=== PATIENT | female | born 1965 | race Caucasian/White ===

== ENCOUNTER 2022-10-04 20:28 | Inpatient (IN) | payer OTHER ==
[~2022-10-04] VITALS: Ht 167.6 cm; Wt 122.5 kg
[2022-10-04 21:15] LABS: BASOPHILS # (AUTO) 0.1 (0.0-0.1); BASOPHILS % 0.5 % (0.0-1.0); EOSINOPHILS # (AUTO) 0.4 (0.0-0.4); EOSINOPHILS % 3.5 % (0.0-6.0); HEMATOCRIT 44.6 % (34.2-44.1); HEMOGLOBIN 14.7 g/dL (12.0-16.0); LYMPHOCYTES # (AUTO) 2.9 (1.0-3.2); LYMPHOCYTES % 26.2 % (18.0-39.1); MEAN CORPUSCULAR HEMOGLOBIN 29.2 pg (28-32); MEAN CORPUSCULAR VOLUME 88.7 fL (81-99); MONOCYTES # (AUTO) 0.7 (0.2-0.8); MONOCYTES % 6.4 % (4.4-11.3); NEUTROPHILS # (AUTO) 6.9 (2.1-6.9); PLATELET COUNT 323 x10e3/uL (140-360); RED BLOOD COUNT 5.03 x10e6/uL (3.6-5.1); RED CELL DISTRIBUTION WIDTH 13.7 % (11.7-14.4)
[2022-10-04 21:28] LABS: AMPHETAMINES SCREEN,URINE NEGATIVE (NEGATIVE); BENZODIAZEPINES SCREEN,URINE NEGATIVE (NEGATIVE); PHENCYCLIDINE SCREEN,URINE NEGATIVE (NEGATIVE)
[2022-10-04] MEDS ORDERED: DILTIAZEM HCL 5 MG/ML 5 ML VIAL IV STA (21:33)
[2022-10-04] MEDS ORDERED: METOPROLOL TARTRATE INJ 1 MG/ML VIAL IV STA (21:33)
[2022-10-04] MEDS ORDERED: DIGOXIN INJ 0.25 MG/ML 2 ML AMP IV STA (21:33)
[2022-10-04 21:37] LABS: ALANINE AMINOTRANSFERASE 20 IU/L (0-55); ALBUMIN 3.2 g/dL (3.5-5.0); ALBUMIN/GLOBULIN RATIO 0.8 (0.8-2.0); ALKALINE PHOSPHATASE 79 IU/L (40-150); ANION GAP 12.5 mmol/L (8-16); BLOOD UREA NITROGEN 11 mg/dL (7-26); BUN/CREATININE RATIO 14 (6-25); CALCIUM 9.2 mg/dL (8.4-10.2); CARBON DIOXIDE 26 mmol/L (22-29); CHLORIDE 107 mmol/L (98-107); CREATINE KINASE 39 IU/L (29-168); CREATININE, SERUM 0.81 mg/dL (0.57-1.11); GLUCOSE 132 mg/dL (74-118); POTASSIUM 3.5 mmol/L (3.5-5.1); SODIUM 142 mmol/L (136-145)
[2022-10-04] MEDS: SODIUM CHLORIDE 0.9% 1000ML 1,000 ML IV SCH (21:59)
[2022-10-04] MEDS ORDERED: Morphine 4mg INJECTION 4 MG/ML INJ IV PRN (22:00)
[2022-10-04] MEDS ORDERED: ONDANSETRON HCL INJ 2MG/ML 2ML 2 MG/ML VIAL IV PRN (22:00)
[2022-10-04 23:18] VITALS: PULSE 77; RESP 18; O2SAT 98
[2022-10-05] MEDS ORDERED: POLYETHYLENE GLYCOL 3350 17 GM PACK PO PRN (00:15)
[2022-10-05] MEDS ORDERED: METOPROLOL TARTRATE INJ 1 MG/ML VIAL IV PRN (00:15)
[2022-10-05] MEDS ORDERED: TEMAZEPAM 7.5 MG CAP PO PRN (00:15)
[2022-10-05 05:14] LABS: BASOPHILS # (AUTO) 0.1 (0.0-0.1); BASOPHILS % 0.6 % (0.0-1.0); EOSINOPHILS # (AUTO) 0.4 (0.0-0.4); EOSINOPHILS % 3.9 % (0.0-6.0); HEMOGLOBIN 13.2 g/dL (12.0-16.0); LYMPHOCYTES # (AUTO) 2.9 (1.0-3.2); LYMPHOCYTES % 26.6 % (18.0-39.1); MEAN CORPUSCULAR HEMOGLOBIN 29.3 pg (28-32); MEAN CORPUSCULAR HGB CONC 32.2 g/dL (31-35); MEAN CORPUSCULAR VOLUME 90.9 fL (81-99); MONOCYTES % 8.8 % (4.4-11.3); NEUTROPHILS # (AUTO) 6.6 (2.1-6.9); NEUTROPHILS % 59.7 % (38.7-80.0); PLATELET COUNT 277 x10e3/uL (140-360); RED BLOOD COUNT 4.51 x10e6/uL (3.6-5.1); RED CELL DISTRIBUTION WIDTH 13.7 % (11.7-14.4)
[2022-10-05 05:29] LABS: ALBUMIN 2.9 g/dL (3.5-5.0); ALBUMIN/GLOBULIN RATIO 0.8 (0.8-2.0); ANION GAP 11.8 mmol/L (8-16); CALCIUM 8.6 mg/dL (8.4-10.2); CREATINE KINASE 28 IU/L (29-168); CREATININE, SERUM 0.71 mg/dL (0.57-1.11); POTASSIUM 3.8 mmol/L (3.5-5.1)
[2022-10-05] MEDS: SODIUM CHLORIDE 0.9% 1000ML 1,000 ML IV SCH (06:00)
[2022-10-05 06:52] VITALS: PULSE 75; RESP 18; O2SAT 96
[2022-10-05 13:22] LABS: CREATINE KINASE MB 1.4 ng/mL (0-5.0)
[2022-10-05 15:22] VITALS: BP 134/85; PULSE 75; RESP 18; TEMP 97.7; O2SAT 100
[2022-10-05] MEDS: DOCUSATE SODIUM 100 MG CAP PO SCH ×2 (16:03→17:24)
[2022-10-05 16:35] VITALS: BP 134/85; PULSE 83; RESP 19; TEMP 98.7; O2SAT 97
[2022-10-05] MEDS ORDERED: CARVEDILOL3.125 MG PO (17:58)
[2022-10-05] MEDS ORDERED: LOSARTAN POTASS25 MG PO (17:58)
[2022-10-05 20:00] VITALS: BP 130/80; PULSE 85; RESP 20; TEMP 97.6; O2SAT 98
[2022-10-05] MEDS: ACETAMINOPHEN 325 MG TAB PO PRN (21:13)
[2022-10-06] VITALS (10 sets, daily range): BP systolic 129–177; BP diastolic 56–90; PULSE 74–110; RESP 16–21; TEMP 97.3–98; O2SAT 96–100
[2022-10-06] MEDS: ACETAMINOPHEN 325 MG TAB PO PRN ×2 (05:15→12:03)
[2022-10-06 06:10] LABS: BASOPHILS # (AUTO) 0.1 (0.0-0.1); BASOPHILS % 0.5 % (0.0-1.0); EOSINOPHILS # (AUTO) 0.4 (0.0-0.4); HEMATOCRIT 44.3 % (34.2-44.1); LYMPHOCYTES % 27.2 % (18.0-39.1); MEAN CORPUSCULAR HEMOGLOBIN 28.7 pg (28-32); MEAN CORPUSCULAR HGB CONC 31.6 g/dL (31-35); MEAN CORPUSCULAR VOLUME 90.8 fL (81-99); MONOCYTES # (AUTO) 0.9 (0.2-0.8); MONOCYTES % 8.3 % (4.4-11.3); NEUTROPHILS # (AUTO) 6.6 (2.1-6.9); NEUTROPHILS % 59.6 % (38.7-80.0); PLATELET COUNT 331 x10e3/uL (140-360); RED BLOOD COUNT 4.88 x10e6/uL (3.6-5.1); RED CELL DISTRIBUTION WIDTH 13.6 % (11.7-14.4)
[2022-10-06 06:30] LABS: ALBUMIN/GLOBULIN RATIO 0.8 (0.8-2.0); ANION GAP 13.7 mmol/L (8-16); CALCIUM 8.8 mg/dL (8.4-10.2); CHOL/HDL RATIO 3.7 (3.0-3.6); CREATININE, SERUM 0.72 mg/dL (0.57-1.11); MAGNESIUM 2.2 MG/DL (1.3-2.1); PHOSPHORUS 3.7 MG/DL (2.3-4.7); POTASSIUM 3.7 mmol/L (3.5-5.1)
[2022-10-06 07:56] LABS: THYROID STIMULATING HORMONE 3.804 uIU/mL (0.350-4.940)
[2022-10-06] MEDS: DOCUSATE SODIUM 100 MG CAP PO SCH ×3 (09:00→16:48)
[2022-10-06] MEDS ORDERED: METOPROLOL SUCCINATE 25 MG TAB XL PO SCH (09:00)
[2022-10-06] MEDS ORDERED: REGADENOSON 0.4 MG/5 ML SYR IV ONE (09:51)
[2022-10-06] MEDS: METOPROLOL TARTRATE 25 MG TAB PO SCH (17:07)
[2022-10-07] VITALS: BP 116/65; PULSE 77; RESP 22; TEMP 98.1; O2SAT 97
[2022-10-07 04:00] VITALS: BP 130/70; PULSE 65; RESP 18; TEMP 98; O2SAT 99
[2022-10-07] MEDS: METOPROLOL TARTRATE 25 MG TAB PO SCH ×3 (05:30→11:14)
[2022-10-07 07:36] VITALS: BP 129/61; PULSE 65; RESP 18; TEMP 97.4; O2SAT 96
[2022-10-07 07:56] VITALS: BP 129/61; PULSE 65; RESP 18; TEMP 97.4; O2SAT 96
[2022-10-07 11:02] VITALS: BP 113/62; PULSE 62; RESP 21; TEMP 98.6; O2SAT 98
[2022-10-07] MEDS: ACETAMINOPHEN 325 MG TAB PO PRN (11:14)
[2022-10-07] MEDS ORDERED: ONDANSETRON HCL 4 MG ORAL DISINTEGRATING TAB PO PRN (13:30)
[2022-10-07] MEDS ORDERED: TEMAZEPAM 15 MG CAP PO PRN (13:30)
[2022-10-07] MEDS ORDERED: METOPROLOL TART50 MG PO (15:14)
[2022-10-07 15:43] VITALS: BP 110/55; PULSE 58; RESP 18; TEMP 98.6; O2SAT 96
[2022-10-07] MEDS ORDERED: METOPROLOL TARTRATE 50 MG TAB PO SCH (21:00)
== END 2022-10-07 16:19 | disposition home or self-care (01) | DRG 309 ==
LOC: ER 20:35 → ERHOLD 21:53 → MED/SURG2 10-05 13:40 → OBSVTOIN 10-06 09:13
PROVIDERS: ADMIT Internal Medicine; ATTEND Internal Medicine
DX: I47.1 Supraventricular tachycardia (principal); Z68.41 Body mass index [BMI] 40.0-44.9, adult; R55 Syncope and collapse; I48.20 Chronic atrial fibrillation, unspecified; I11.9 Hypertensive heart disease without heart failure; K21.9 Gastro-esophageal reflux disease without esophagitis; E78.5 Hyperlipidemia, unspecified; E66.01 Morbid (severe) obesity due to excess calories
CPT/HCPCS: 0223U; 36415; 71045; 78452; 80053; 80061; 80307; 82550; 82553; 83036; 83690; 83735; 83880; 84100; 84443; 84484; 85025; 85379; 93005; 93017; 93306; 93970; 94799; 99284; A9502; G0378; J1160; J7030

== ENCOUNTER 2024-11-03 15:17 | Emergency (ER) | payer OTHER ==
[~2024-11-03] VITALS: Ht 167.6 cm; Wt 136.1 kg
[~2024-11-03 15:17] MED LIST: CARVEDILOL3.125 MG PO; LOSARTAN POTASS25 MG PO; METOPROLOL TART50 MG PO
[2024-11-03 15:46] LABS: BASOPHILS # (AUTO) 0.1 (0.0-0.1); BASOPHILS % 0.5 % (0.0-1.0); EOSINOPHILS # (AUTO) 0.4 (0.0-0.4); EOSINOPHILS % 3.9 % (0.0-6.0); HEMATOCRIT 40.2 % (34.2-44.1); HEMOGLOBIN 13.3 g/dL (12.0-16.0); LYMPHOCYTES # (AUTO) 2.7 (1.0-3.2); MEAN CORPUSCULAR HEMOGLOBIN 29.7 pg (28-32); MEAN CORPUSCULAR HGB CONC 33.1 g/dL (31-35); MEAN CORPUSCULAR VOLUME 89.7 fL (81-99); MONOCYTES % 9.8 % (4.4-11.3); NEUTROPHILS # (AUTO) 5.8 (2.1-6.9); NEUTROPHILS % 58.5 % (38.7-80.0); PLATELET COUNT 280 x10e3/uL (140-360); RED BLOOD COUNT 4.48 x10e6/uL (3.6-5.1); RED CELL DISTRIBUTION WIDTH 13.4 % (11.7-14.4); WHITE BLOOD COUNT 9.93 x10e3/uL (4.8-10.8)
[2024-11-03 15:57] LABS: INR 0.91; PARTIAL THROMBOPLASTIN TIME 24.7 seconds (23.8-35.5); PROTHROMBIN TIME 13.1 seconds (11.9-14.5)
[2024-11-03 16:05] LABS: ALBUMIN 3.1 g/dL (3.5-5.0); ALBUMIN/GLOBULIN RATIO 0.8 (0.8-2.0); ANION GAP 14.8 mmol/L (8-16); BILIRUBIN,TOTAL 0.6 mg/dL (0.2-1.2); CALCIUM 9.4 mg/dL (8.4-10.2); CREATININE, SERUM 0.78 mg/dL (0.57-1.11); MAGNESIUM 1.9 MG/DL (1.3-2.1); POTASSIUM 3.8 mmol/L (3.5-5.1); TOTAL PROTEIN 7.2 g/dL (6.5-8.1)
[2024-11-03 16:11] LABS: TROPONIN I 0.002 ng/mL (0-0.300)
[2024-11-03] MEDS: SODIUM CHLORIDE 0.9% 1000ML 1,000 ML IV STA (16:15)
[2024-11-03] MEDS: ONDANSETRON HCL INJ 2MG/ML 2ML 2 MG/ML VIAL IV STA (16:15)
[2024-11-03] MEDS ORDERED: IOPAMIDOL 370 MG/ML 100 ML INFUS..BTL INJ ONE (17:40)
[2024-11-03] MEDS ORDERED: DICYCLOMINE HCL20 MG PO (17:52)
[2024-11-03 18:00] VITALS: PULSE 73; RESP 16; TEMP 98.3; O2SAT 96
== END 2024-11-03 18:10 | disposition home or self-care (01) ==
LOC: ER 15:38
DX: R10.10 Upper abdominal pain, unspecified (principal); K80.20 Calculus of gallbladder without cholecystitis without obstruction; K43.9 Ventral hernia without obstruction or gangrene; I10 Essential (primary) hypertension; K21.9 Gastro-esophageal reflux disease without esophagitis
CPT/HCPCS: 36415; 74177; 80053; 83690; 83735; 84484; 85025; 85610; 85730; 93005; 99284; J2405; J2470; J7030; Q9967

== ENCOUNTER → 2024-12-07 | Day surgery (SDC) | payer OTHER ==
[2024-12-03 09:28] LABS: BASOPHILS % 0.6 % (0.0-1.0); EOSINOPHILS % 5.6 % (0.0-6.0); LYMPHOCYTES % 25.7 % (18.0-39.1); MONOCYTES % 9.3 % (4.4-11.3); NEUTROPHILS % 58.4 % (38.7-80.0); RED CELL DISTRIBUTION WIDTH 13.3 % (11.7-14.4)
[2024-12-03 09:51] LABS: EST GLOMERULAR FILTRATION RATE 80.0 ML/MIN (>=60)
[~2024-12-07] MED LIST changes: +ACETAMINOPHEN 1000 MG/100 ML 100 ML IV ONE; +DEXAMETHASONE SOD PHOS INJ 4 MG/ML SDV ONE; +DEXMEDETOMIDINE HCL 2 ML ONE; +DICYCLOMINE HCL20 MG PO; +FAMOTIDINE 20 MG/2 ML VIAL IV ONE; +FENTANYL CITRATE/PF 100MCG/2 ML INJ ONE; +LACTATED RINGER'S 1,000 ML ONE; +LIDOCAINE HCL 2% LOCAL INJ 5 ML SDV VIAL INJ ONE; +MIDAZOLAM HCL 2 MG/2 ML VIAL ONE; +ONDANSETRON HCL INJ 2MG/ML 2ML 2 MG/ML VIAL ONE; +PROPOFOL IV EMULSION 10 MG/ML 20 ML VIAL ONE; +ROCURONIUM BROMIDE 1 ML IV ONE; +SEVOFLURANE INHAL SOLN 250 ML PEN BTL ONE; +SUCCINYLCHOLINE CHLORIDE 20 MG/ML 10ML VIAL ONE; +SUGAMMADEX SODIUM 200 MG/2 ML VIAL IV ONE; +TYLENOL325 MG PO
[2024-12-07 12:02] VITALS: TEMP 97.8
[2024-12-07] MEDS: ONDANSETRON HCL INJ 2MG/ML 2ML 2 MG/ML VIAL IV ONE (12:22)
[2024-12-07 13:20] VITALS: BP 144/55; PULSE 65; RESP 16; O2SAT 96
[2024-12-07] MEDS: HYDROCODONE/APAP 7.5MG-325MG 1 EA TAB ONE (13:25)
== END | disposition home or self-care (01) ==
LOC: OR 07:52
PROVIDERS: ATTEND Surgery
DX: K80.10 Calculus of gallbladder with chronic cholecystitis without obstruction (principal); K76.0 Fatty (change of) liver, not elsewhere classified; K43.6 Other and unspecified ventral hernia with obstruction, without gangrene; K82.8 Other specified diseases of gallbladder; G47.33 Obstructive sleep apnea (adult) (pediatric); I10 Essential (primary) hypertension; E66.01 Morbid (severe) obesity due to excess calories; I49.9 Cardiac arrhythmia, unspecified; Z88.1 Allergy status to other antibiotic agents; Z88.0 Allergy status to penicillin; Z01.812 Encounter for preprocedural laboratory examination; Z01.818 Encounter for other preprocedural examination; Z79.899 Other long term (current) drug therapy
CPT/HCPCS: 36415; 47562; 71046; 80053; 85025; 88304; 93005; C1766; J0131; J0330; J1100; J1308; J2003; J2250; J2405; J2704; J3010; J7121

== ENCOUNTER 2025-01-22 14:14 | Emergency (ER) | payer SELFPAY ==
[~2025-01-22] VITALS: Ht 167.6 cm; Wt 131.3 kg
[~2025-01-22 14:14] MED LIST changes: -ACETAMINOPHEN 1000 MG/100 ML 100 ML IV ONE; -DEXAMETHASONE SOD PHOS INJ 4 MG/ML SDV ONE; -DEXMEDETOMIDINE HCL 2 ML ONE; -FAMOTIDINE 20 MG/2 ML VIAL IV ONE; -FENTANYL CITRATE/PF 100MCG/2 ML INJ ONE; -LACTATED RINGER'S 1,000 ML ONE; -LIDOCAINE HCL 2% LOCAL INJ 5 ML SDV VIAL INJ ONE; -MIDAZOLAM HCL 2 MG/2 ML VIAL ONE; -ONDANSETRON HCL INJ 2MG/ML 2ML 2 MG/ML VIAL ONE; -PROPOFOL IV EMULSION 10 MG/ML 20 ML VIAL ONE; -ROCURONIUM BROMIDE 1 ML IV ONE; -SEVOFLURANE INHAL SOLN 250 ML PEN BTL ONE; -SUCCINYLCHOLINE CHLORIDE 20 MG/ML 10ML VIAL ONE; -SUGAMMADEX SODIUM 200 MG/2 ML VIAL IV ONE
[2025-01-22 15:35] VITALS: PULSE 80; RESP 18; TEMP 98.2; O2SAT 100
[2025-01-22] MEDS ORDERED: ELIQUIS5 M1 PO (17:27)
[2025-01-22] MEDS ORDERED: ELIQUIS5 MG PO (21:44)
== END 2025-01-22 17:43 | disposition home or self-care (01) ==
LOC: ER 16:35
DX: M79.662 Pain in left lower leg (principal); I82.442 Acute embolism and thrombosis of left tibial vein; M79.89 Other specified soft tissue disorders; I10 Essential (primary) hypertension; K21.9 Gastro-esophageal reflux disease without esophagitis
CPT/HCPCS: 93971; 99283